=== PATIENT | male | born 1965 | race African-American/Black ===

== ENCOUNTER 2020-11-06 20:34 | Inpatient (IN) | payer BC, OTHER ==
[~2020-11-06] VITALS: Ht 188 cm; Wt 90.7 kg
[2020-11-06] MEDS ORDERED: HYDR-4075 PO (21:09)
[2020-11-06] MEDS ORDERED: AMLO-212 PO (21:09)
[2020-11-06] MEDS ORDERED: IV NORMAL SALINE 1000 ML BAG IV ONE ×2 (21:30→22:45)
[2020-11-06 21:51] LABS: BASOPHILS % (AUTO) 0.2 % (0.0-2.0); EOSINOPHILS % (AUTO) 0.4 % (0.0-7.0); HEMATOCRIT 47.3 % (36.7-47.1); HEMOGLOBIN 16.1 g/dL (12.5-16.3); LYMPHOCYTES # (AUTO) 0.6 K/uL (20.0-40.0); MEAN CORPUSCULAR HEMOGLOBIN 31.3 uug (23.8-33.4); MEAN CORPUSCULAR HGB CONC 34 g/dL (32.5-36.3); MEAN CORPUSCULAR VOLUME 92.2 fL (73.0-96.2); MONOCYTES # (AUTO) 0.6 K/uL (2.0-10.0); MONOCYTES % (AUTO) 6.5 % (0.0-11.0); NEUTROPHILS # (AUTO) 8.1 K/uL (1.8-8.9); NEUTROPHILS % (AUTO) 86.9 % (38.5-71.5); PLATELET COUNT (AUTO) 187 K/uL (152-348); RED BLOOD CELL COUNT(AUTO) 5.13 MIL/uL (4.06-5.63); WHITE BLOOD COUNT (AUTO) 9.3 K/uL (3.6-10.2)
[2020-11-06 21:54] LABS: POTASSIUM 4.5 mmol/L (3.5-5.1)
[2020-11-06 22:00] LABS: BILIRUBIN,DIRECT 0.1 mg/dL (0.0-0.2); BILIRUBIN,TOTAL 0.4 mg/dL (0.2-1.0)
[2020-11-06] MEDS ORDERED: IV NORMAL SALINE 250 ML IV ONE (22:14)
[2020-11-06] MEDS ORDERED: SWABABLE VALVE TRANSFER SET EA MC ONE (22:14)
[2020-11-06] MEDS ORDERED: IOHEXOL 300MG/ML 100 ML INFUS..BTL ONE (22:14)
[2020-11-06] MEDS ORDERED: LIDOCAINE 2% (UROJET) 10 ML JELLY MM ONE ×2 (22:45→23:21)
[2020-11-06] MEDS ORDERED: LORAZEPAM 2 MG/1 ML VIAL IV ONE (23:30)
[2020-11-06] MEDS ORDERED: HYDROMORPHONE 1 MG/1 ML DISP.SYRIN IV ONE (23:30)
[2020-11-06] MEDS ORDERED: HYDROMORPHONE 1 MG/1 ML DISP.SYRIN ONE (23:35)
[2020-11-06] MEDS ORDERED: LORAZEPAM 2 MG/1 ML VIAL ONE (23:35)
--- NOTE | 2020-11-06 23:37 | NUR ---
Pt. admitted to Med/Surg , under care of Dr. Ramos De Oliveira/Dr. Ruiz. Dx: Small Bowel Obstruction Belongs List completed
[2020-11-07 01:40] VITALS: BP 118/79
--- NOTE | 2020-11-07 01:40 | NUR ---
ADMITTED THIS 55 Y.O. MALE WITH COMPLAINTS OF ABDOMINAL PAIN,HAS HAS PAST HISTORY OF SMALL BOWEL OBSTRUCTION.ALERT ORIENTED X4, NEEDS ATTENDED TO, ADMISSION CARE DONE,SKIN INTACT ,NO ISSUES NOTED. NG F 16 ON LEFT NOSTRIL PRESENT., 18 G ANGIOCATH ON RIGHT FOREARM PATENT.PT.DIDNT WANT TO BE BOTHERED WITH QUESTIONS AND INQUIRY, PT STATED(IM TOO TIRED ,I JUST WANT TO REST AND SLEEP.,KEPT WARM AND DRY.
[2020-11-07] MEDS ORDERED: MORPHINE SULFATE 2 MG/1 ML DISP.SYRIN IV PRN (03:00)
[2020-11-07] MEDS ORDERED: IV D5/ 0.9% NACL 1,000 ML IV PRN (03:00)
[2020-11-07] MEDS ORDERED: ONDANSETRON 4 MG/2 ML VIAL IV PRN (03:15)
[2020-11-07 04:00] VITALS: BP 120/67
[2020-11-07 06:40] LABS: BASOPHILS % (AUTO) 0.3 % (0.0-2.0); EOSINOPHILS % (AUTO) 0.5 % (0.0-7.0); HEMATOCRIT 42.8 % (36.7-47.1); HEMOGLOBIN 14.3 g/dL (12.5-16.3); LYMPHOCYTES # (AUTO) 1.4 K/uL (20.0-40.0); LYMPHOCYTES % (AUTO) 19.5 % (20.5-51.5); MEAN CORPUSCULAR HGB CONC 34 g/dL (32.5-36.3); MEAN CORPUSCULAR VOLUME 92.5 fL (73.0-96.2); MONOCYTES # (AUTO) 0.9 K/uL (2.0-10.0); MONOCYTES % (AUTO) 11.9 % (0.0-11.0); NEUTROPHILS # (AUTO) 4.9 K/uL (1.8-8.9); NEUTROPHILS % (AUTO) 67.8 % (38.5-71.5); PLATELET COUNT (AUTO) 168 K/uL (152-348); RED BLOOD CELL COUNT(AUTO) 4.62 MIL/uL (4.06-5.63); WHITE BLOOD COUNT (AUTO) 7.2 K/uL (3.6-10.2)
[2020-11-07 07:02] LABS: BILIRUBIN,TOTAL 0.7 mg/dL (0.2-1.0); CREATININE 0.9 mg/dL (0.6-1.3); MAGNESIUM 2.3 mg/dL (1.8-2.4); PHOSPHOROUS 3.7 mg/dL (2.5-4.9); POTASSIUM 4.2 mmol/L (3.5-5.1); TOTAL PROTEIN, SERUM 7.5 g/dL (6.4-8.2)
[2020-11-07 07:06] LABS: THYROID STIMULATING HORMONE 1.227 mIU/mL (0.358-3.740)
[2020-11-07] MEDS ORDERED: IV NS 1000 ML 1,000 ML IV PRN (07:30)
--- NOTE | 2020-11-07 07:38 | NUR ---
Patient is awake watching tv. Alert and oriented. Ng tube attached to intermittent suction intact. No complaints of pain, nausea, vomiting or diarrhea. Patient said he wants to start eating. Reminded of MD order for npo for now. Patient verbalized understanding. Iv on rfa intact and patent. Kept comfortable. Call light in reach. Will continue to monitor.
[2020-11-07] MEDS ORDERED: DIATR MEGLU/DIATRIZOATE SODIUM 30 ML BOTTLE ONE (08:52)
[2020-11-07] MEDS ORDERED: PANTOPRAZOLE SODIUM 40 MG VIAL IV SCH (09:00)
--- NOTE | 2020-11-07 09:00 | NUR ---
Patient refused ng tube, explained orders for small bowel through by myself and charge nurse and for contrast to be administered via ng tube, npo orders but patient is adamant. Removed ng tube, patient tolerated with minimal discomfort. Dr. Beasley is made aware by charge nurse.
--- NOTE | 2020-11-07 10:35 | NUR ---
Patient verbalized he just had a bowel movement a little loose but mostly formed. Patient verbalized relief after bm. Denies nausea, vomiting or pain. Continue monitor.
--- NOTE | 2020-11-07 10:35 | NUR ---
Patient is sleeping comfortably. No respiratory distress noted. No facial grimacing noted. Continue to be monitored.
[2020-11-07 11:24] VITALS: BP 123/83
[2020-11-07 16:37] VITALS: BP 127/81
--- NOTE | 2020-11-07 17:30 | NUR ---
Patient is discharged to home. He is alert and oriented x4. Patient advanced to regular diet, had dinner before leaving. He tolerated diet. Denies abdominal pain, nausea or vomiting. Had a bowel movement this morning and verbalized felt much better. No abdominal distention noted. Right forearm IV removed minimal bleeding noted. Patient teaching done and informed to continue medications as ordered and to follow discharge instructions. Patient verbalized understanding and that he has the same medications at home. Patient was seen by Dr. Joe Ruiz this morning but he refused surgery bec his symptoms have resolved and due to trauma from previous surgery. Encouraged patient to seek medical help if he is not improving further or worsening, verbalized understanding. Patient's things inventoried and all in good condition. Patient expression appreciation for his stay here. Picked up by his in stable condition.
== END 2020-11-07 17:30 | disposition home or self-care (01) | DRG 389 ==
LOC: ER 20:34 → MEDSURG3 11-07 01:23
DX: K56.600 Partial intestinal obstruction, unspecified as to cause (principal); J98.11 Atelectasis; E87.1 Hypo-osmolality and hyponatremia; K76.0 Fatty (change of) liver, not elsewhere classified; I10 Essential (primary) hypertension; E86.1 Hypovolemia; K57.30 Diverticulosis of large intestine without perforation or abscess without bleeding; Z20.822 Contact with and (suspected) exposure to COVID-19
CPT/HCPCS: 36415; 74250; 82533; 83605; 83690; 83735; 84100; 84443; 84550; 85025; 85651; 93005; A4663; C9113; G0378; J1170; J2060; J7030; J7050; Q9963; Q9967